=== PATIENT | female | born 1995 | race African-American/Black ===

== ENCOUNTER 2017-10-14 10:46 | Emergency (ER) | payer OTHER, SELFPAY ==
[2017-10-14] MEDS ORDERED: Ibuprofen 800 MG TAB ONE (12:47)
== END 2017-10-14 12:50 | disposition home or self-care (01) ==
LOC: ERS 10:46
DX: J06.9 Acute upper respiratory infection, unspecified (principal)
CPT/HCPCS: 99283

== ENCOUNTER 2018-11-09 16:39 | Day surgery (SDC) | payer OTHER, SELFPAY ==
[2018-11-09 17:31] VITALS: BP 118/67; TEMP 98.7; BMI 27.2
[2018-11-09] MEDS ORDERED: Sodium Chloride 0.9% 1,000 ML IV SCH (19:00)
--- NOTE | 2018-11-09 20:03 | ULT ---
BIOPHYSICAL PROFILE: 11/09/2018 HISTORY: A 23-year-old female with decreased movement. TECHNIQUE: Multiplanar santiago-scale sonographic imaging of the gravid uterus obtained. FINDINGS: Cervical length is approximately 4.4 cm. A single intrauterine gestation is present, demonstrating a vertex presentation. The placenta is located anteriorly, with no evidence for previa or abruption. Amniotic fluid index is 13 cm. heart rate is 162 beats per minute. The plaster tender reports a 2/2 score for tone, breathing, movement, and amniotic flu id. IMPRESSION: Normal 8/8 biophysical profile. POS: [facility]
--- NOTE | 2018-11-09 20:44 | PDOC.FPROB ---
FMR OB H&P: HPI - History of Present Illness Chief Complaint: decreased mvmt Indentification: History of Present Illness: This is a 23yo at 37.5w EGA by 16.6w US presenting for eval of decreased mvmt. Pt reports she has not felt her baby move all day. She has no other concerns at this time and does not know why this has happened. reports good po intake. Reports that though she has had on and off headaches throughout her at this time she is asymptomatic. No ANDRADE/SOB/CP/visual changes. no vaginal bleeding/LOF/contractions. She does report that since arriving to L&D she has been given some cold water and has felt a lot of mvmt. Primary Care Physician: Dr. Miesha Duarte FMR OB H&P: Current - Care : 2 Para: 1001 Gestational age: 37.5w Due date: 11/25/2018 Dating Criteria: 16.6w US - OB Labs HIV: negative RPR: negative Urine drug screen: negative Gonorrhea: negative Chlamydia: negative 1 hour gtt: 91 GBS: positive FMR OB H&P: History - Past Medical History PMH: none - OB History OB History: denies hx of obstetrical complications - Surgical History Sx History: none - Social History Social History: denies etoh/drugs/tobacco - Family History Family History: HTN, CAD FMR OB H&P: Medications - Current Home Medications: Medication Instructions Recorded Confirmed Type Vitamin 1 tablet PO DAILY 11/09/18 11/09/18 History Allergies/Adverse Reactions: Allergies Allergy/AdvReac Type Severity Reaction Status Date / Time No Known Allergies Allergy Verified 11/09/18 17:34 FMR OB H&P: ROS - Review of Systems General: denies: fever/chills, fatigue Eyes: denies: eye pain, vision changes ENT: denies: nasal congestion, rhinorrhea Cardiovascular: denies: chest pain, palpitation Respiratory: denies: cough, congestion, shortness of breath Gastrointestinal: denies: abdominal pain, nausea Genitourinary (Female): denies: incontinence, dysuria Musculoskeletal: denies: pain, stiffness Neurologic: denies: syncope, seizures Integumentary: denies: rash, lesions Endocrine: denies: cold intolerance, heat intolerance Hematologic/Lymphatic: denies: prolonged or excessive bleeding Psychological: denies: depression, anxiety FMR OB H&P: Vital Signs - Maternal Vital signs: Vital Signs - First Documented Temp Pulse Resp BP Pulse Ox 98.7 F 99 18 118/67 99 11/09/18 17:20 11/09/18 17:20 11/09/18 17:20 11/09/18 17:20 11/09/18 17:20 - Heart Tones Baseline: 140 Variability: moderate Acceleration: present Deceleration: variable (1 variable noted early on observation) FMR OB H&P: Physical Exam - Physical Exam General: NAD, awake, alert and oriented HEENT: normocephalic and atraumatic, EOMI, grossly normal vision, grossly normal hearing Neck: supple, trachea midline Chest: non-tender to palpation Breast: symmetric Heart: RRR, normal S1/S2 General: CTAB, no respiratory distress Abdomen: gravid, bowel sound present Musculoskeletal: pulses present, no atrophy Neurological: sensation to pain,touch and proprioception grossly normal, no focal deficit Skin: no rash, good tugor Lymphatic: no unusual bruising or bleeding, no purpura Psychiatric: intact recent and remote memory, good judgement and insight FMR OB H&P: A/P - Problem List (1) Decreased movement Status: Acute Code(s): O36.8190 - DECREASED MOVEMENTS, UNSP TRIMESTER, UNSP (2) Status: Acute Discussion: 23yo at 37.5w EGA by 16.6w US presenting for eval of decreased mvmt Decreased movement A- though pt reports decreased mvmt throughout day she reports normal movement since presentation to hospital. Otherwise pt is asymptomatic. FHT reassuring at this time. P- will give 1L IVF - BPP Of note: 1-2 hour later BPP was completed at 8/8. FHT continued to look reassuring on monitor and pt remained asymptomatic. Pt is not in labor and shows no signs of maternal or distress. Safe for DC home. Addendum - Attending - Attending Attestation Date/Time: 11/09/182028 I personally evaluated the patient and discussed the management with Dr. Aguirre I agree with the History, Examination, Assessment and Plan documented above with any addition or exceptions noted below. 23 yo female at 37.5 wks by 16.6 wk sono presents for evaluation of decreased movement. Patient reports baby has not been moving as much today. Notes movement but decreased from normal. Denies LOF, VB, contractions, and trauma. FHT: 155/mod/pos acels/no decels occasional contractions. +FM noted by mother and confirmed with audible movement on monitoring. BPP 8/8 Reassuring status on prolonged monitoring and BPP. Precautions discussed. Encouraged kick count monitoring. Follow up with PCP later this week. Yanira
== END 2018-11-09 20:40 | disposition home or self-care (01) ==
LOC: L&D/OP 16:39
PROVIDERS: ATTEND Family Medicine
DX: O36.8130 Decreased fetal movements, third trimester, not applicable or unspecified (principal); Z3A.37 37 weeks gestation of pregnancy; Z87.891 Personal history of nicotine dependence
CPT/HCPCS: 59025; 76819; 96360; 99282

== ENCOUNTER 2018-11-15 01:08 | Inpatient (IN) | payer OTHER ==
[2018-11-15 01:43] VITALS: BMI 28.3
--- NOTE | 2018-11-15 02:07 | PDOC.FPROB ---
FMR OB H&P: HPI - History of Present Illness Chief Complaint: Contractions History of Present Illness: 23yo at 38.4wks by 16.6wk US presenting for contractions that started at 2300 last night. She reports them being 2-3min apart and much more painful than the contractions she had been feeling. Reports thick mucus but no LOF or vaginal bleeding. Endorses movement. No headache, vision changes, edema. Primary Care Physician: Dr Miesha Duarte FMR OB H&P: Current - Care : 2 Para: 1001 Gestational age: 38.4 Due date: 11/25/2018 Dating Criteria: 16.6wk US Course/Complications: GBS + - OB Labs Blood type: A RH: positive Antibody Screen: negative HIV: negative RPR: negative HepBsAg: negative Rubella: immune Gonorrhea: negative Chlamydia: negative 1 hour gtt: 91 GBS: positive FMR OB H&P: History - Past Medical History PMH: None - OB History OB History: Reports by induction due to nonreassuring heart tones - PLSQL DEVELOPER History PLSQL DEVELOPER History: None - Social History Social History: Denies alcohol, tobacco and drug use - Family History Family History: Father of baby- heart disease and HTN Maternal cousin: Spina bifida and down syndrome FMR OB H&P: Medications - Current Home Medications: Medication Instructions Recorded Confirmed Type Vitamin 1 tablet PO DAILY 11/09/18 11/15/18 History Allergies/Adverse Reactions: Allergies Allergy/AdvReac Type Severity Reaction Status Date / Time No Known Allergies Allergy Verified 11/15/18 01:44 FMR OB H&P: ROS - Review of Systems General: denies: fever/chills, weight/appetite/sleep changes Eyes: denies: vision changes, double vision, scotomas, floaters ENT: denies: nasal congestion Cardiovascular: denies: chest pain, palpitation Respiratory: denies: cough, shortness of breath Gastrointestinal: denies: abdominal pain, vomiting Genitourinary (Female): reports: contractions, vaginal pressure. denies: dysuria, vaginal bleeding Neurologic: denies: numbness, headache Integumentary: denies: rash, lesions FMR OB H&P: Vital Signs - Maternal Vital signs: Vital Signs - First Documented Temp Pulse Resp BP Pulse Ox 98.4 F 93 18 128/69 99 11/15/18 01:38 11/15/18 01:38 11/15/18 01:38 11/15/18 01:38 11/15/18 01:38 - Heart Tones Baseline: 145 Variability: moderate Acceleration: present Deceleration: absent Category: category 1 [place] contractions every: 2-5min FMR OB H&P: Physical Exam - Physical Exam General: NAD, awake, alert and oriented HEENT: normocephalic and atraumatic, MMM, conjunctiva clear, grossly normal hearing, oropharynx clear Neck: supple, trachea midline Heart: RRR, no murmurs/rubs/gallops, pulses present, no edema General: CTAB, no respiratory distress, good air movement, no wheezing Abdomen: soft, gravid, non-tender, bowel sound present Musculoskeletal: pulses present, no atrophy Skin: no rash, capillary refill <2 seconds Psychiatric: intact recent and remote memory, good judgement and insight, normal mood and affect - Pelvic Exam SVE: /-3 Membranes: Intact Presentation: Cephalic Estimated Weight: 7 lbs FMR OB H&P: A/P - Problem List (1) Current Visit: No Status: Acute (2) Positive GBS test Current Visit: Yes Status: Acute Code(s): B95.1 - STREPTOCOCCUS, GROUP B, CAUSING DISEASES CLASSD ELSWHR Disposition: 23yo @38.4wks by 16.6wk US presenting due to regular painful contractions tIUP - Continuous monitoring, currently Cat 1. Reassuring NST - Initial SVE /-3 @0130 - Jason every 3-5min - Recheck /-2 - Will admit to L&D for latent labor - Continue serial cervical checks GBS + - Will need Penicillin for ppx Needs PAP Discussion: Date/Time: 11/15/18 0200 This H&P was discussed with Dr. Abdul and Dr. Boudreaux who agree with the above documentation and plan. Addendum - Attending - Attending Attestation Date/Time: 11/15/18 0710 I personally evaluated the patient and discussed the management with Dr. Arora. I agree with the History, Examination, Assessment and Plan documented above with any addition or exceptions noted below. Latent labor and quickly changed to 6 cm. Begin PCN and expectantly management.
--- NOTE | 2018-11-15 03:08 | PDOC.LDPN ---
Labor & Delivery Progress Note - Subjective Subjective: painful contractions - Objective Vital signs reviewed and normal: yes General: breathing through contractions Uterine fundus: non tender Dilation: 5 Effacement: 75% Station: -2 FHT: category 1 [place] contractions every: 2-4 minutes - Assessment (1) Positive GBS test Code(s): B95.1 - STREPTOCOCCUS, GROUP B, CAUSING DISEASES CLASSD ELSWHR Current Visit: Yes Status: Acute (2) Term Code(s): Z34.80 - ENCOUNTER FOR SUPRVSN OF NORMAL , UNSP TRIMESTER Current Visit: Yes Status: Acute (3) Current Visit: No Status: Acute Plan: continue plan of care -: 23 yo at 38.4w by 16w sono here in labor 1. Term - Making cervical change - Will admit to L&D 2. GBS positive - PCN for ppx 3. Late to care - Labs WNL 4. FHx spina bifida and down syndrome - Did not f/u for testing - Sono WNL, initial concern for situs inversus WNL on f/u sono Admit to L&D, expectant mgmt. Desires epidural. Addendum - Attending - Attending Attestation Date/Time: 11/15/18 5392 I personally evaluated the patient and discussed the management with Dr. Arora. I agree with the History, Examination, Assessment and Plan documented above with any addition or exceptions noted below.
[2018-11-15] MEDS ORDERED: Ondansetron PF 4 MG/2 ML Vial IVP PRN ×2 (03:20→03:52)
[2018-11-15] MEDS ORDERED: Promethazine HCl 25 MG/ML VIAL IM PRN ×2 (03:20→03:52)
[2018-11-15] MEDS ORDERED: Lidocaine 1% (PF) 30 ML VIAL SC PRN (03:20)
[2018-11-15] MEDS ORDERED: Fentanyl 4 mcg/Bup 0.1% Cadd 100 ML ONE (03:27)
[2018-11-15] MEDS ORDERED: Penicillin G Potassium 5 MILL.UNITS in Sodium Chloride 0.9% 100 ML IVPB SCH (03:30)
[2018-11-15] MEDS: Lactated Ringer's 1,000 ML IV SCH ×4 (03:33→14:00)
[2018-11-15] MEDS ORDERED: diphenhydrAMINE 50 MG/ML VIAL IVP PRN (03:52)
[2018-11-15] MEDS ORDERED: Naloxone HCl 0.4 mg/ml Vial IVP PRN ×2 (03:52)
[2018-11-15] MEDS ORDERED: ePHEDrine/0.9% NaCl/PF SYRINGE 50 mg/10 ml SLOW IVP PRN (03:52)
[2018-11-15] MEDS ORDERED: Lactated Ringer's 500 ML IV PRN (03:52)
[2018-11-15] MEDS ORDERED: Eucerin (Mineral Oil/Petrolatum,White) 30 gm Jar TOP PRN (03:52)
[2018-11-15] MEDS ORDERED: Acetaminophen 325 MG TAB PO PRN (03:52)
[2018-11-15 03:57] LABS: Hemoglobin 12.2 g/dL (12.0-16.0); Mean Corpuscular HGB CONC 34.2 g/dL (32.0-36.0); Mean Corpuscular Hemoglobin 29.5 pg (27.0-31.0); Mean Corpuscular Volume 86.2 fL (78.0-98.0); Mean Platelet Volume 7.7 fL (7.4-10.4); Platelet Count 280 thou/uL (130-400); RBC Distribution Width 13.5 % (11.5-14.5); Red Blood Cell (RBC) Count 4.13 mill/uL (4.20-5.40); White Blood Cell (WBC) Count 10.6 thou/uL (4.8-10.8)
[2018-11-15] MEDS ORDERED: Fentanyl 4 mcg/Bupivacaine 0.1% Cassette 100 ML EPIDURAL SCH (04:00)
[2018-11-15] MEDS ORDERED: Communication Order-Pharmacy FS SCH (04:00)
[2018-11-15 04:42] LABS: HBSAg Index 0.22 S/CO (0-0.99); Hep B Surf Ag Non-Reactive S/CO (NonReactive)
--- NOTE | 2018-11-15 05:07 | PDOC.LDPN ---
Addendum entered and electronically signed by Emily Arora MD 11/15/18 05:10 : Elevated systolic 149 & 156. Will increase monitoring to q15min and send for spot urine protein/Cr Original Note: Labor & Delivery Progress Note - Subjective Subjective: comfortable - Objective Vital signs reviewed and normal: yes Abnormal vital signs: Systolic elevated 149 & 156 General: NAD Uterine fundus: non tender Dilation: 7 Effacement: 100% Station: -1 FHT: category 2 [place] contractions every: 1-2min - Assessment (1) Current Visit: No Status: Acute (2) Positive GBS test Code(s): B95.1 - STREPTOCOCCUS, GROUP B, CAUSING DISEASES CLASSD ELSWHR Current Visit: Yes Status: Acute Plan: continue plan of care -: 23 yo at 38.4w by 16w sono here in labor tIUP - Making cervical change - Will admit to L&D - Continuous monitoring, currently Cat 2 due to variable decels - SVE 7/100/-1 - Resting comfortably with epidural - Continue serial cervical checks GBS + - PCN for ppx x1 Late to care Needs PAP Addendum - Attending - Attending Attestation Date/Time: 11/15/18 0682 I personally evaluated the patient and discussed the management with Dr. Arora. I agree with the History, Examination, Assessment and Plan documented above with any addition or exceptions noted below.
--- NOTE | 2018-11-15 05:23 | PDOC.EVN ---
Event Note - Event Note Event Note: After repositioning cuff, Systolic BP in 110's x2. Cancelled urine protein/Cr. Will continue to monitor
[2018-11-15 05:24] LABS: Syphilis Antibody Nonreactive (Nonreactive); Syphilis Antibody Index 0.03 S/CO (<1.00 Non-Reactive)
--- NOTE | 2018-11-15 05:54 | PDOC.LDPN ---
Labor & Delivery Progress Note - Subjective Subjective: comfortable - Objective Vital signs reviewed and normal: yes General: NAD Uterine fundus: non tender Dilation: 8 Effacement: 100% Station: 0 FHT: category 2 [place] contractions every: 3-5min - Assessment (1) Current Visit: No Status: Acute (2) Positive GBS test Code(s): B95.1 - STREPTOCOCCUS, GROUP B, CAUSING DISEASES CLASSD ELSWHR Current Visit: Yes Status: Acute Plan: continue plan of care -: 23 yo at 38.4w by 16.6w sono here in labor tIUP - Making cervical change - Will admit to L&D - Continuous monitoring, currently Cat 2 due to variable decels. Will monitor closely - SVE 8/100/0 - Resting comfortably with epidural - Continue serial cervical checks GBS + - PCN for ppx x1 Late to care Needs PAP
--- NOTE | 2018-11-15 06:55 | PDOC.LDPN ---
Labor & Delivery Progress Note - Subjective Subjective: painful contractions - Objective Vital signs reviewed and normal: yes General: NAD Uterine fundus: non tender Dilation: 8 Effacement: 100% Station: 0 FHT: category 2, variable decelerations [place] contractions every: 2-3min AROM: clear fluid - Assessment (1) Current Visit: No Status: Acute (2) Positive GBS test Code(s): B95.1 - STREPTOCOCCUS, GROUP B, CAUSING DISEASES CLASSD ELSWHR Current Visit: Yes Status: Acute Plan: continue plan of care -: 23 yo at 38.4w by 16.6w sono here in labor tIUP - Making cervical change - Will admit to L&D - Continuous monitoring, currently Cat 2 due to variable decels. Will monitor closely - SVE 8/100/0 - Feeling contractions with epidural - sROM with clear fluid - Continue serial cervical checks GBS + - PCN for ppx x1 Late to care Needs PAP
[2018-11-15] MEDS: NS / Oxytocin 40 units/1000ml 1,000 ML IV PRN ×2 (07:32→08:58)
[2018-11-15] MEDS: Penicillin G 2.5 MILL.units 2.5 MILL.UNITS in Premix Bag 1 BAG IVPB SCH (10:19)
[2018-11-15] MEDS ORDERED: Bisacodyl 10 MG SUPP PR PRN (11:41)
[2018-11-15] MEDS ORDERED: Milk Of Magnesia 30 ML UDCUP PO PRN (11:41)
[2018-11-15] MEDS: Ibuprofen 800 MG TAB PO SCH ×2 (12:57→21:10)
[2018-11-15] MEDS: Ferrous Sulfate 325 MG TAB PO SCH (16:33)
[2018-11-15] MEDS ORDERED: Sodium Chloride 0.9% (PF) 10 ML VIAL ONE (18:02)
[2018-11-15] MEDS ORDERED: Bupivacaine/Epinephrine 0.25% 30 ML VIAL ONE (18:02)
[2018-11-15] MEDS ORDERED: Benzocaine/Menthol 20-0.5% 60 ML CAN TOP PRN (19:53)
[2018-11-15] MEDS: Docusate Calcium (SURFAK) 240 MG CAP PO SCH (21:10)
--- NOTE | 2018-11-16 05:17 | PDOC.OP ---
Operative Note - Operative Note Operative Note: Delivering Physicians Bong Arora MD and Angélica Abdul MD Attending: Dr Xavier Boudreaux MD Procedure: Spontaneous Vaginal Delivery Anesthesia: epidural EBL: 168 ml Pre-op Diagnosis: 1. Term intrauterine in labor 2. GBS positive Post-op Diagnosis: 1. Term intrauterine , delivered 2. GBS positive, inadequate treatment Indications: A 23y/o female presents in active labor Delivery Note: This is 23yo F @ 38.4wks who delivered a viable F infant at 0731 on 11/15/18. Following an uneventful antepartum course, a vigorous female was delivered over an second degree laceration perineum in the occipitoanterior position. Anterior Shoulder and then remainder of the body delivered. No nuchal cord. The head was held down and mouth and nares were bulb suctioned. Cord clamped and cut and cord blood collected. Placenta delivered intact in the [place] position with a 3 vessel cord noted. Fundal massage was performed and the fundus was firm. The cervix and vagina were inspected and found to have 2nd degree midline perineal laceration repaired with 3-0 Chromic in the usual fashion with good approximation and hemostasis. went to nursery in good condition for routine care. Apgars were 8/9 at 1 & 5 minutes, respectively. Patient tolerated delivery well and went to after routine recovery/care. Addendum - Attending - Attending Attestation Date/Time: 11/16/18 7065 I was present for the entire procedure.
[2018-11-16] MEDS: Ibuprofen 800 MG TAB PO SCH ×3 (05:20→22:18)
--- NOTE | 2018-11-16 06:13 | PDOC.PP ---
Post Progress Note Post Day #: 1 Subjective: Patient resting comfortably in bed. No complaints or issues. PO intake tolerated: yes Flatus: yes Ambulation: yes Vital Signs (12 hours) Temp Pulse Resp BP Pulse Ox 11/16/18 03:45 98.5 F 99 16 113/53 L 11/16/18 00:00 98.0 F 92 16 106/53 L 11/15/18 20:00 98.5 F 95 16 102/52 L 98 Weight Weight 63.503 kg - Physical Examination General: NAD Cardiovascular: no m/r/g, RRR Respiratory: clear to auscultation bilaterally, non-labored breathing Abdominal: + bowel sounds, no distention, appropriately TTP Fundus firm & at: level of umbilicus Extremities: negative homans (B) Neurological: no gross focal deficits Psychiatric: A&Ox3, normal affect Result Diagrams: 11/15/18 03:46 Additional Labs: Post Labs Blood Type A POSITIVE 11/15/18 03:46 Hep Bs Antigen Non-Reactive S/CO (NonReactive) 11/15/18 03:46 (1) Term Code(s): Z34.80 - ENCOUNTER FOR SUPRVSN OF NORMAL , UNSP TRIMESTER Status: Acute (2) Positive GBS test Code(s): B95.1 - STREPTOCOCCUS, GROUP B, CAUSING DISEASES CLASSD ELSWHR Status : Acute - Assessment/Plan 23 yr old G2-->P2 delivered via at 38.4 wks. Term , delivered - Routine PP care - bottle feeding, breast feed consult today. - H&H > 12 prior to delivery and QBL low - desires depo PP for contraception GBS + , inadequately treated - monitor mom and baby 48 hours Addendum - Attending - Attending Attestation Date/Time: 11/16/182120 I personally evaluated the patient and discussed the management with Dr. Carlos I agree with the History, Examination, Assessment and Plan documented above with any addition or exceptions noted below. PPD #1 s/p uncomplicated . Meeting appropriate milestones. Having some difficulty with latching. consult ordered GBS + with inadequate prophylaxis. Anticipate d/c to home on PPD #2
[2018-11-16] MEDS: Docusate Calcium (SURFAK) 240 MG CAP PO SCH ×2 (08:52→22:18)
[2018-11-16] MEDS: Ferrous Sulfate 325 MG TAB PO SCH ×2 (08:53→17:43)
[2018-11-16] MEDS ORDERED: Adacel (T-DAP) 0.5 ML SYRINGE IM ONE (09:00)
[2018-11-16 20:52] VITALS: TEMP 98
[2018-11-17] MEDS: Ibuprofen 800 MG TAB PO SCH ×2 (06:16→08:05)
--- NOTE | 2018-11-17 07:46 | PDOC.PP ---
Post Progress Note Post Day #: 2 Subjective: Doing well. lochia down. pain controlled. PO intake tolerated: yes Flatus: yes Ambulation: yes Vital Signs (12 hours) Temp Pulse Resp BP Pulse Ox 11/16/18 20:30 98.0 F 85 18 115/56 L 99 Weight Weight 63.503 kg - Physical Examination General: NAD Cardiovascular: no m/r/g, RRR Respiratory: clear to auscultation bilaterally, non-labored breathing Abdominal: + bowel sounds, lochia (decreased), appropriately TTP Fundus firm & at: below umbilicus Extremities: negative homans (B) Neurological: no gross focal deficits Psychiatric: A&Ox3, normal affect Result Diagrams: 11/15/18 03:46 Additional Labs: Post Labs Blood Type A POSITIVE 11/15/18 03:46 Hep Bs Antigen Non-Reactive S/CO (NonReactive) 11/15/18 03:46 (1) Term Code(s): Z34.80 - ENCOUNTER FOR SUPRVSN OF NORMAL , UNSP TRIMESTER Status: Acute (2) Positive GBS test Code(s): B95.1 - STREPTOCOCCUS, GROUP B, CAUSING DISEASES CLASSD ELSWHR Status : Acute - Assessment/Plan 23 yr old G2--> P2 on PPD#2 s/p at 38.4 wks. IUP, delivered -doing well -likely D/C this morning -f/u with me in 2 weeks. -depo planned for contraception GBS postive, inadequate ppx -monitored now for 48 hours Addendum - Attending - Attending Attestation Date/Time: 11/17/18 9793 I personally evaluated the patient and discussed the management with Dr. Duarte I agree with the History, Examination, Assessment and Plan documented above with any addition or exceptions noted below. Meeting appropriate milestones. Stable for d/c to home today.
[2018-11-17] MEDS: Docusate Calcium (SURFAK) 240 MG CAP PO SCH (08:05)
[2018-11-17] MEDS: Ferrous Sulfate 325 MG TAB PO SCH (08:06)
[2018-11-17 09:48] VITALS: BP 100/56
== END 2018-11-17 11:00 | disposition home or self-care (01) | DRG 807 ==
LOC: L&D/OP 01:08 → L&D 02:58 → 3SW 11:33
PROVIDERS: ADMIT Emergency Medicine; ATTEND Emergency Medicine
PROC: 10E0XZZ Delivery of Products of Conception, External Approach (ICD-10-PCS; principal; 2018-11-15)
PROC: 0KQM0ZZ Repair Perineum Muscle, Open Approach (ICD-10-PCS; 2018-11-15)
DX: O99.824 Streptococcus B carrier state complicating childbirth (principal); Z37.0 Single live birth; Z3A.38 38 weeks gestation of pregnancy; O70.1 Second degree perineal laceration during delivery
CPT/HCPCS: 36415; 51702; 86780; 86850; 86900; 86901; 87340; 99285; J2405; J2540; J7050

== ENCOUNTER 2019-06-18 13:07 | Emergency (ER) | payer OTHER | END 2019-06-18 13:54 | disposition home or self-care (01) | LOC: ERS 13:07 | DX: J02.9 Acute pharyngitis, unspecified (principal) | CPT/HCPCS: 99281 ==

== ENCOUNTER 2022-01-23 09:41 | Emergency (ER) | payer SELFPAY | END 2022-01-23 11:25 | disposition home or self-care (01) | LOC: ERS 09:41 | DX: N75.1 Abscess of Bartholin's gland (principal) | CPT/HCPCS: 99283 ==

== ENCOUNTER 2022-07-01 08:47 | Emergency (ER) | payer OTHER ==
[2022-07-01] MEDS ORDERED: Acetaminophen 500 MG TAB ONE (10:18)
[2022-07-01 12:28] LABS: SARS-CoV-2 NAA Rapid Test Not Detected (NotDetected)
== END 2022-07-01 10:15 | disposition home or self-care (01) ==
LOC: ERS 08:47
DX: O99.512 Diseases of the respiratory system complicating pregnancy, second trimester (principal); J02.9 Acute pharyngitis, unspecified
CPT/HCPCS: 99283

== ENCOUNTER 2025-09-06 10:23 | Emergency (ER) | payer OTHER ==
[2025-09-06] MEDS ORDERED: Famotidine/PF 20 mg/2ml Vial ONE (10:54)
[2025-09-06] MEDS ORDERED: Ondansetron PF 4 MG/2 ML Vial ONE (10:54)
[2025-09-06 11:16] LABS: #Basophils 0.03 10x3/uL (0.0-0.2); #Eosinophils 0.12 10x3/uL (0.0-0.7); #Monocytes 0.73 10x3/uL (0.11-0.59); #Neutrophils 4.70 10x3/uL (1.40-6.50); %Basophils 0.4 % (0.0-1.0); %Eosinophils 1.5 % (0.0-10.0); %Lymphocytes 30.4 % (21.0-51.0); %Monocytes 9.1 % (0.0-10.0); %Neutrophils 58.2 % (42.0-75.0); Hematocrit 46.8 % (36.0-47.0); Hemoglobin 16.6 g/dL (12.0-16.0); Mean Corpuscular Hemoglobin 30.3 pg (27.0-31.0); Mean Corpuscular Volume 85.4 fL (78.0-98.0); Platelet Count 407 10x3/uL (130-400); Red Blood Cell (RBC) Count 5.48 mill/uL (4.20-5.40); White Blood Cell (WBC) Count 8.06 10x3/uL (4.8-10.8)
[2025-09-06 11:25] LABS: CAUTI Indications for Culture Pelvic or flank pain; Glucose, Urine (Dipstick) Normal (Negative); Leukocyte Negative Leu/uL (Negative); Protein, Urine (Dipstick) 70 mg/dL (Neg-Trace); RBC/HPF Greater than 50 HPF (0-3)
[2025-09-06 11:26] LABS: Bacteria/HPF 1+ HPF (None Seen); Specific Gravity, Urine Greater than 1.050 (1.002-1.036); Urine Culture Reflex No No
[2025-09-06 11:56] LABS: ALT (SGPT) 11 U/L (Less than 34); AST (SGOT) 28 U/L (11-34); Albumin 4.9 g/dL (3.1-4.5); Alkaline Phosphatase 60 U/L (40-110); Anion Gap 15 mmol/L (10-20); BUN (Urea Nitrogen) 17 mg/dL (7.0-18.7); Bilirubin, Total 0.9 mg/dL (0.3-1.2); Calc. Creatinine Clearance 0 mL/min (70-130); Calcium 9.9 mg/dL (7.8-10.44); Carbon Dioxide 23 mmol/L (22-29); Chloride 98 mmol/L (98-107); Globulin 4.2 g/dL (2.4-3.5); Glucose 93 mg/dL (70-105); Lipase 20 U/L (8-78); Potassium 3.4 mmol/L (3.5-5.1); Sodium 133 mmol/L (136-145)
== END 2025-09-06 13:07 | disposition home or self-care (01) ==
LOC: ERS 10:23
DX: O20.0 Threatened abortion (principal); Z3A.00 Weeks of gestation of pregnancy not specified
CPT/HCPCS: 76856; 80053; 81001; 83690; 84702; 85025; 96374; 96375; J1308; J2405